=== PATIENT | male | born 1955 | race African-American/Black ===

== ENCOUNTER 2019-09-06 13:02 | Emergency (ER) | payer OTHER ==
[~2019-09-06 13:02] MED LIST: Iopamidol 370 76% 100 ML VIAL ONE
[2019-09-06 13:36] LABS: Bilirubin Negative (Negative); Blood, Urine Trace (Negative); Clarity Clear (Clear); Glucose, Urine (Dipstick) 500 mg/dL (Negative); Leukocyte Negative (Negative); Nitrite Negative (Negative); Protein, Urine (Dipstick) Negative (Neg-Trace); Urobilinogen 0.2 mg/dL (Less than 2)
[2019-09-06 13:43] LABS: Bacteria/HPF Rare-Few HPF (None Seen); RBC/HPF 0-3 HPF (0-3); Squamous Epithelial 0-3 HPF (0-3); WBC/HPF 0-3 HPF (0-3)
[2019-09-06 14:09] LABS: #Basophils 0.1 thou/uL (0.0-0.2); #Eosinphils 0.1 thou/uL (0.0-0.7); #Lymphocytes 0.7 thou/uL (1.20-3.40); #Monocytes 0.5 thou/uL (0.11-0.59); #Neutrophils 9.2 thou/uL (1.40-6.50); %Basophils 0.9 % (0.0-1.0); %Eosinophils 0.7 % (0.0-10.0); %Lymphocytes 6.6 % (21.0-51.0); %Monocytes 5.1 % (0.0-10.0); %Neutrophils 86.7 % (42.0-75.0); Hemoglobin 15.4 g/dL (14.0-18.0); Mean Corpuscular HGB CONC 31.9 g/dL (32.0-36.0); Mean Platelet Volume 7.2 fL (7.4-10.4); Platelet Count 213 thou/uL (130-400); Red Blood Cell (RBC) Count 5.31 mill/uL (4.70-6.10); White Blood Cell (WBC) Count 10.6 thou/uL (4.8-10.8)
[2019-09-06 14:22] LABS: ALT (SGPT) 22 U/L (8-55); AST (SGOT) 15 U/L (5-34); Albumin 3.9 g/dL (3.4-4.8); Alkaline Phosphatase 54 U/L (40-110); Anion Gap 15 mmol/L (10-20); BUN (Urea Nitrogen) 12 mg/dL (8.4-25.7); Bilirubin, Total 0.7 mg/dL (0.2-1.2); Calc. Creatinine Clearance 0 mL/min (70-130); Calcium 9.2 mg/dL (7.8-10.44); Carbon Dioxide 23 mmol/L (23-31); Chloride 99 mmol/L (98-107); Estimated GFR-MDRD 61; Globulin 3.2 g/dL (2.4-3.5); Glucose 389 mg/dL (80-115); Potassium 3.8 mmol/L (3.5-5.1); Protein, Total 7.1 g/dL (5.8-8.1); Sodium 133 mmol/L (136-145)
[2019-09-06] MEDS ORDERED: Sodium Chloride 0.9% 500 ML ONE (14:27)
[2019-09-06] MEDS ORDERED: Acetaminophen 500 MG TAB ONE (14:27)
[2019-09-06] MEDS ORDERED: Metoclopramide HCl 10 MG/2 ML VIAL ONE (14:42)
--- NOTE | 2019-09-06 16:57 | CT ---
CT ABDOMEN AND PELVIS WITH IV CONTRAST 09/06/2019 CLINICAL INFORMATION: Suprapubic pain and rectal pain. Hematuria and fever. COMPARISON: None. Technique: Multiple contiguous axial CT images are obtained through the abdomen and pelvis with IV contrast. Cor onal reformatted images are provided. FINDINGS: Lower Chest: Incompletely visualization of a pleural based nodular density right upper lobe. Mild dep endent bibasilar atelectasis is present. Vessels: Abdominal aorta is normal in caliber. Minimal vascular calcifications are seen. Abdomen: Portal vein:Patent Gallbladder: Within normal limits for CT imaging. Liver: Irregular low-density area seen in the region of the right hepatic lobe and caudate lobe which may be related to an area of mild fatty infiltration. This does not have masslike configuration, but follow-up evaluation is suggested. Spleen: within normal limits. Pancreas: within normal limits. Adrenals: within normal limits. Kidneys: Subcentimeter too small to characterize hypodense lesion is seen in the inferior pole left k idney. Kidneys otherwise demonstrate a normal CT appearance. There is mild prominence of the distal ureters bilaterally which is nonspecific and could be related to peristalsis. There is no hydronephro sis or ureteral calculus. Bowel: Loops of small bowel are normal in caliber. A small amount retained fecal material is seen wit hin the colon. Appendix: The appendix is visualized and normal in caliber. Peritoneum: No ascites or free air; no fluid collection. Mesentery and Retroperitoneum: No enlarged mesenteric or retroperitoneal lymph nodes. Abdominal Wall: within normal limits. Pelvis: Reproductive Organs: No pelvic masses. Pelvis within normal limits. Bladder: within normal limits. Bones: Degenerative changes are seen predominantly in the lower lumbar spine. There is sclerosis maurilio g the inferior endplate of the L4 vertebral body which is likely attributable to endplate degenerative changes. There is no destruction of the endplates to suggest findings related to disciti s and osteomyelitis. IMPRESSION: 1. Area of subtle diminished attenuation adjacent to the caudate lobe of the liver probably due to ar ea of focal fatty infiltration. This does not have a masslike configuration. However, follow-up CT scan examination in 4-6 months is recommended. 2. Incomplete visualization of a pleural-based nodular density adjacent to the minor fissure. This co uld be related to an subpleural lymph node but is overall nonspecific. However, follow-up CT scan examination of the chest in 4-6 months at time of follow-up evaluation for findings in the liver is r ecommended. 3. Subcentimeter too small to characterize hypodense lesion left kidney. 4. No acute findings are seen in the abdomen or pelvis.
== END 2019-09-06 17:52 | disposition home or self-care (01) ==
LOC: MADERS 13:02
DX: N41.9 Inflammatory disease of prostate, unspecified (principal); E11.65 Type 2 diabetes mellitus with hyperglycemia; I10 Essential (primary) hypertension; R79.89 Other specified abnormal findings of blood chemistry; R31.9 Hematuria, unspecified; E78.5 Hyperlipidemia, unspecified; E78.00 Pure hypercholesterolemia, unspecified; Z79.84 Long term (current) use of oral hypoglycemic drugs; Z79.899 Other long term (current) drug therapy
CPT/HCPCS: 74177; 80053; 81003; 81015; 83605; 85025; 87040; 87077; 87086; 87186; 87804; 96361; 96374; J2765; J7050; Q9967

== ENCOUNTER 2020-04-25 19:18 | Emergency (ER) | payer OTHER ==
[2020-04-25] MEDS ORDERED: Sulfameth/Trimethoprim DS 800-160mg TAB ONE (19:49)
[2020-04-25] MEDS ORDERED: Cephalexin 500 MG CAP ONE (19:49)
== END 2020-04-25 20:05 | disposition home or self-care (01) ==
LOC: MADERS 19:18
DX: L02.811 Cutaneous abscess of head [any part, except face] (principal); E11.9 Type 2 diabetes mellitus without complications; E78.5 Hyperlipidemia, unspecified; E78.00 Pure hypercholesterolemia, unspecified; I10 Essential (primary) hypertension
CPT/HCPCS: 99283

== ENCOUNTER 2024-05-22 12:08 | Emergency (ER) | payer BC, MEDICARE | END 2024-05-22 13:03 | disposition home or self-care (01) | LOC: MADERS 12:08 | DX: M70.22 Olecranon bursitis, left elbow (principal); L85.9 Epidermal thickening, unspecified; I10 Essential (primary) hypertension; E11.9 Type 2 diabetes mellitus without complications; E78.00 Pure hypercholesterolemia, unspecified; Z79.899 Other long term (current) drug therapy; Z79.4 Long term (current) use of insulin | CPT/HCPCS: 99282 ==